=== PATIENT | female | born 1975 | race Caucasian/White ===

== ENCOUNTER 2020-11-06 06:18 | Observation (INO) | payer SELFPAY ==
[2020-11-06] VITALS (14 sets, daily range): BP systolic 80–117; BP diastolic 53–84
[~2020-11-06] VITALS: Ht 162.6 cm; Wt 71.2 kg
[~2020-11-06 06:18] MED LIST: ALPR1TAB2 PO; HYDR-3164 PO; IV RINGERS,LACTATED 1000ML 1,000 ML IV SCH; NAPR-683 PO; ceFAZolin SODIUM IV Push 1 GM VIAL. IVP PRN; fentaNYL PF VIAL 100 MCG/2 ML VIAL IVP PRN
[2020-11-06] MEDS ORDERED: LIDOCAINE 1%/EPI 1:100,000 20 ML VIAL. ONE (07:12)
[2020-11-06] MEDS ORDERED: ESTROGENS, CONJ VAGINAL CREAM 30GM TUBE. ONE (07:12)
[2020-11-06] MEDS ORDERED: INDIGOTINDISULFONATE SODIUM 40 MG/5 ML AMPUL. ONE (07:12)
[2020-11-06] MEDS ORDERED: ROCURONIUM 50 MG/5 ML VIAL. ONE (07:55)
[2020-11-06] MEDS ORDERED: MIDAZOLAM HCL/PF 2 MG/2 ML VIAL. ONE (08:10)
[2020-11-06] MEDS ORDERED: DEXAMETHASONE SOD PHOS 4 MG/ML VIAL ONE (08:10)
[2020-11-06] MEDS ORDERED: SEVOFLURANE 61 TO 120 MINUTES. IH ONE (08:11)
[2020-11-06] MEDS ORDERED: PROPOFOL 10 MG/ML (20ML) VIAL. IV ONE ×2 (08:12)
[2020-11-06] MEDS ORDERED: ONDANSETRON PF 4 MG/2 ML VIAL. ONE (08:12)
[2020-11-06] MEDS ORDERED: LIDOCAINE 2% PF 5 ML VIAL. ONE (08:12)
[2020-11-06] MEDS ORDERED: KETOROLAC 30 MG/ML VIAL. ONE (08:12)
[2020-11-06] MEDS ORDERED: NEOSTIGMINE METHYLSULFATE 5 MG/5 ML SYRINGE. ONE (08:13)
[2020-11-06] MEDS ORDERED: fentaNYL PF VIAL 100 MCG/2 ML VIAL ONE ×3 (08:13→09:42)
[2020-11-06] MEDS ORDERED: GLYCOPYRROLATE 1 MG/5 ML VIAL. ONE (08:13)
--- NOTE | 2020-11-06 08:56 | PDOC ---
BRIEF OPERATIVE NOTE Date: Nov 06, 2020 Pre-Op Diagnosis MT 3 Post-Op Diagnosis Same + Fibroids Procedure Performed TVH & RSO Surgeon Dr. Perez Licensed Staff Mft Oven Builder: Jose Anesthesia Type: General Blood Loss 50 ml Specimens Obtained cervix, uterus, ROV, Right fallopian tube Findings MT 3 with fibroids on uterus, nml ROV Complications none Operative Note see dictation STEPAN PEREZ Jr, MD Nov 06, 2020 08:56
[2020-11-06] MEDS ORDERED: SIMETHICONE 80 MG TAB.CHEW PO PRN (09:00)
[2020-11-06] MEDS ORDERED: CALCIUM CARBONATE 500 MG TAB.CHEW PO PRN (09:00)
[2020-11-06] MEDS ORDERED: DEXTROSE 50% 25 GM / 50ML DISP.SYRIN. IV PRN (09:00)
[2020-11-06] MEDS ORDERED: PROCHLORPERAZINE 10 MG/2 ML VIAL. IV PRN (09:00)
[2020-11-06] MEDS ORDERED: diphenhydrAMINE 50 MG/ML VIAL IV PRN (09:00)
[2020-11-06] MEDS ORDERED: 0.9 % SODIUM CHLORIDE 10 ML DISP.SYRIN. IV PRN (09:00)
[2020-11-06] MEDS ORDERED: OPIUM/BELLADONNA 30/16.2MG SUPP.RECT. PR PRN (09:00)
[2020-11-06] MEDS ORDERED: diphenhydrAMINE HCL 25 MG CAPSULE PO PRN (09:00)
[2020-11-06] MEDS ORDERED: KETOROLAC 30 MG/ML VIAL. IV PRN (09:00)
[2020-11-06] MEDS ORDERED: ZOLPIDEM 5 MG TABLET. PO PRN (09:00)
[2020-11-06] MEDS ORDERED: ONDANSETRON PF 4 MG/2 ML VIAL. IV PRN (09:00)
[2020-11-06] MEDS: fentaNYL PF VIAL 100 MCG/2 ML VIAL IVP PRN ×3 (09:09→09:44)
[2020-11-06] MEDS: PROCHLORPERAZINE 10 MG/2 ML VIAL. IVP PRN ×2 (09:11→09:21)
--- NOTE | 2020-11-06 09:13 | OP ---
DATE OF SURGERY: 11/06/2020 PREOPERATIVE DIAGNOSIS: Cervical intraepithelial neoplasia 3. POSTOPERATIVE DIAGNOSIS: Cervical intraepithelial neoplasia 3, fibroids. PROCEDURE: TVH and RSO. SURGEON: Daren Perez MD PROJECT HIRE: Jose. ANESTHESIA: GETA. ESTIMATED BLOOD LOSS: 50 mL. COMPLICATIONS: None. FINDINGS: Cervical intraepithelial neoplasia 3 with fibroids on the uterus, normal right ovary. SUMMARY: A 44-year-old female with MT 3, requiring hysterectomy. She was counseled on the risks, benefits and expectations of TVH and RSO. Voiced a clear understanding to proceed. DESCRIPTION OF PROCEDURE: The patient was taken to surgery suite and placed in dorsal lithotomy position, was prepped with Betadine solution and draped in a sterile fashion. After adequate anesthesia, weighted speculum and curved Roly were placed vaginally. Anterior and posterior lips of the cervix grasped with Rossi clamps, 1% lidocaine with epinephrine was injected in a circumferential manner. Bovie cautery was utilized to circumscribe the cervix. The vaginal mucosa was dissected away from the lower uterine segment using moist Ray-Darlene. Parametrial tissue was clamped bilaterally using curved Selena clamps, cut and suture ligated with 2-0 Vicryl suture. Posterior cul-de-sac was entered bluntly. A long weighted speculum was placed. Uterosacral ligaments and cardinal ligaments were clamped bilaterally, cut, and suture ligated. Anterior cul-de-sac was entered with blunt dissection using a moist Ray-Darlene. The one additional pedicle on the patient's left side was clamped with curved Selena clamp, cut and suture ligated with 2-0 Vicryl suture. The right uteroovarian pedicle was clamped, cut and suture ligated. The cervix, uterus was removed. There was a fibroid on the uterus that was visualized and removed as well. Giorgio was used to grasp the right fallopian tube and ovary. The curved Selena was then placed behind the right infundibulopelvic ligament, which was cut and suture ligated with 2-0 Vicryl suture. The pedicles appeared hemostatic. A modified Carmona's culdoplasty using 0 Vicryl suture was utilized. The remainder of the vaginal cuff was reapproximated using 2-0 Vicryl suture in [id number] manner. Premarin vaginal packing was placed. Calzada catheter was placed, elicited moderate amount of clear yellow urine. The patient tolerated the procedure well and was taken to recovery room in stable condition. Sponge and needle count correct x 3. GUILLERMO DR: Pita TID: [id number]
[2020-11-06] MEDS: oxyCODONE/APAP 5/325 1 TAB TABLET PO PRN ×3 (11:57→21:53)
--- NOTE | 2020-11-06 12:00 | NUR ---
Patient arrived around 1000 from PACU. and her mom are at bedside. Calzada in place and packing present. She is ALOx4 and on room air at this time. Vital signs being monitored. IV working properly in left hand. Will continue to monitor.
[2020-11-06] MEDS: GABAPENTIN 300 MG CAPSULE. PO SCH ×2 (15:18→21:53)
[2020-11-06] MEDS ORDERED: DOCUSATE SODIUM 100 MG CAPSULE. PO PRN (17:15)
--- NOTE | 2020-11-06 18:25 | NUR ---
Patient called this nurse into her room around 1714 reporting sharp pain in her lower ribs/upper abdomen. She demanded to have the packing out, stating she was sure that was the cause. Packing was removed around 1729 with only a scant amount of bleeding present on the packing. Some of the pressure was relieved but she stated the pain was starting to feel like she had to have a BM but wasnt sure why it felt so sharp and high up in her ribs/abdomen. Patient ambulated around the unit and relieved some gas which she stated made it feel MUCH better. Sprite given to help relieve some of the gas/pressure. She is now resting in her chair stating she is starting to feel much better. IS education completed as well. Will continue to monitor.
--- NOTE | 2020-11-06 19:25 | NUR ---
Dr Perez notified over the phone of everything going on with the patients pain and discomfort and to verify continuing some home medication.
[2020-11-06] MEDS ORDERED: ALPRAZolam 1 MG TABLET PO PRN (19:28)
[2020-11-07 00:21] VITALS: BP 99/52
[2020-11-07 02:18] VITALS: BP 91/52
[2020-11-07 06:00] VITALS: BP 116/54
[2020-11-07] MEDS: oxyCODONE/APAP 5/325 1 TAB TABLET PO PRN ×3 (06:00→15:54)
[2020-11-07] MEDS: GABAPENTIN 300 MG CAPSULE. PO SCH ×2 (06:00→14:10)
--- NOTE | 2020-11-07 08:00 | NUR ---
Ambulating in room and voiding without difficulty. Urine is yellow and clear. Still encourage pt to increase po fluids. Verbalized understanding. Cont. monitor.
[2020-11-07 08:09] LABS: BASO % 0 % (0-3); EOS # 0.1 x10^3/uL (0.0-0.7); EOS % 1 % (0-3); HEMATOCRIT 26.8 % (36.0-47.0); HEMOGLOBIN 9.1 g/dL (12.0-15.5); LYMPH # 2.4 x10^3/uL (1.0-4.8); LYMPH % 20 % (24-48); MEAN CORPUSCULAR HEMOGLOBIN 32 pg (25-35); MEAN CORPUSCULAR HGB CONC 34 g/dL (31-37); MEAN CORPUSCULAR VOLUME 95 fL (79-100); MONO # 1.1 x10^3/uL (0.0-1.1); MONO % 9 % (0-9); NEUT % 69 % (31-73); PLATELET COUNT 230 x10^3/uL (140-400); RED BLOOD COUNT 2.82 x10^6/uL (3.50-5.40); RED CELL DISTRIBUTION WIDTH 16.1 % (11.5-14.5); WHITE BLOOD COUNT 11.6 x10^3/uL (4.0-11.0)
[2020-11-07 11:00] VITALS: BP 100/62
[2020-11-07 15:00] VITALS: BP 109/75
--- NOTE | 2020-11-07 15:02 | PDOC ---
SURGICAL PROGRESS NOTE DATE: 11/07/20 TIME: 15:01 Subjective Pt. feeling well. No complaints. Pain controlled. Pt. ambulating, voiding and tolerating regular diet. She has positive flatus. Vital Signs Vital Signs Date Time Temp Pulse Resp B/P (MAP) Pulse Ox O2 Delivery O2 Flow Rate FiO2 11/07/20 11:20 Room Air 11/07/20 11:00 98.3 88 16 100/62 (75) 92 98.3 11/06/20 09:44 3.0 I&O Intake and Output 11/07/20 07:00 Intake Total 500 ml Output Total 1750 ml Balance -1250 ml Intake Oral 500 ml Output Urine Total 1750 ml # Voids 101 General: Alert, Oriented X3, Cooperative HEENT: Atraumatic Lungs: Clear to auscultation Heart: Regular rate Abdomen: Normal bowel sounds, Soft, No tenderness, No masses Psych/Mental Status: Mental status NL Labs Laboratory Tests Test 11/06/20 05:47 11/07/20 07:40 Bedside Urine HCG, Qualitative Hcg negative (Negative) White Blood Count 11.6 x10^3/uL (4.0-11.0) Red Blood Count 2.82 x10^6/uL (3.50-5.40) Hemoglobin 9.1 g/dL (12.0-15.5) Hematocrit 26.8 % (36.0-47.0) Mean Corpuscular Volume 95 fL (79-100) Mean Corpuscular Hemoglobin 32 pg (25-35) Mean Corpuscular Hemoglobin Concent 34 g/dL (31-37) Red Cell Distribution Width 16.1 % (11.5-14.5) Platelet Count 230 x10^3/uL (140-400) Neutrophils (%) (Auto) 69 % (31-73) Lymphocytes (%) (Auto) 20 % (24-48) Monocytes (%) (Auto) 9 % (0-9) Eosinophils (%) (Auto) 1 % (0-3) Basophils (%) (Auto) 0 % (0-3) Neutrophils # (Auto) 8.0 x10^3/uL (1.8-7.7) Lymphocytes # (Auto) 2.4 x10^3/uL (1.0-4.8) Monocytes # (Auto) 1.1 x10^3/uL (0.0-1.1) Eosinophils # (Auto) 0.1 x10^3/uL (0.0-0.7) Basophils # (Auto) 0.0 x10^3/uL (0.0-0.2) Laboratory Tests Test 11/07/20 07:40 White Blood Count 11.6 x10^3/uL (4.0-11.0) Red Blood Count 2.82 x10^6/uL (3.50-5.40) Hemoglobin 9.1 g/dL (12.0-15.5) Hematocrit 26.8 % (36.0-47.0) Mean Corpuscular Volume 95 fL (79-100) Mean Corpuscular Hemoglobin 32 pg (25-35) Mean Corpuscular Hemoglobin Concent 34 g/dL (31-37) Red Cell Distribution Width 16.1 % (11.5-14.5) Platelet Count 230 x10^3/uL (140-400) Neutrophils (%) (Auto) 69 % (31-73) Lymphocytes (%) (Auto) 20 % (24-48) Monocytes (%) (Auto) 9 % (0-9) Eosinophils (%) (Auto) 1 % (0-3) Basophils (%) (Auto) 0 % (0-3) Neutrophils # (Auto) 8.0 x10^3/uL (1.8-7.7) Lymphocytes # (Auto) 2.4 x10^3/uL (1.0-4.8) Monocytes # (Auto) 1.1 x10^3/uL (0.0-1.1) Eosinophils # (Auto) 0.1 x10^3/uL (0.0-0.7) Basophils # (Auto) 0.0 x10^3/uL (0.0-0.2) Assessment/Plan A: POD#1 s/p TVH & RSO P: D/c home. F/u in 2 weeks. Justicifation of Admission Dx: Justifications for Admission: Justification of Admission Dx: Yes STEPAN MILLER Jr, MD Nov 07, 2020 15:02
[2020-11-07] MEDS ORDERED: IBUP-1060 PO (15:05)
[2020-11-07] MEDS ORDERED: DOCU-153 PO (15:05)
[2020-11-07] MEDS ORDERED: OXYC1TAB15 PO (15:05)
--- NOTE | 2020-11-07 15:06 | DISCH ---
DISCHARGE INSTRUCTIONS Condition on Discharge Condition on Discharge: Stable Activity After Discharge Activity Instructions for Disc: Activity as tolerated Lifting Instructions after Dis: No heavy lifting Driving Instructions after Dis: Do not drive today (no driving x 1 week) Diet after Discharge Diet after Discharge: Regular Contacting the [facility] after DC Call your doctor for: If your condition worsens Follow-Up Follow up with: Dr. Perez in 2 weeks. STEPAN PEREZ Jr, MD Nov 07, 2020 15:06
--- NOTE | 2020-11-07 16:05 | NUR ---
Discharge instructions given with prescriptions. Answered questions and concerns. Verbalized understanding. Pt discharged home accompanied by spouse. Escorted out by w/c.
--- NOTE | 2020-11-12 17:09 | PATHOLOGY ---
[facility] Accession Number: [id number] . 01 Material submitted: . uterus - CERVIX AND UTERUS, RIGHT OVARY, RIGHT FALLOPIAN TUBE. Modifiers: CERVIX, RIGHT OVARY, RIGHT FALLOPIAN TUBE . 01 Clinical history: . CERVICAL CANCER C1N3 TRANSVAGINAL HYSTERECTOMY WITH RIGHT SALPINGO-OOPHERECTOMY CERVICAL INTRAEPITHELIAL . 02 Diagnosis: Uterus, detached ovary with attached fibromuscular tissue, and separate segment of smooth muscle, transvaginal hysterectomy with right salpingo-oophorectomy: - Severe dysplasia/carcinoma in situ (MT-III) with focal superficial endocervical glandular extension, region of transformation zone, uterine cervix, focal. - Exocervical and deep margins negative for MT-III. - Chronic cervicitis with focal squamous metaplasia. - Leiomyomas (2), uterine corpus, subserosal and intramural, the largest measuring 2.6 cm in greatest dimension. - Leiomyoma, separate from uterus, measuring 2.9 cm in greatest dimension. - Serous inclusions/cysts with psammomatous calcifications, ovarian capsule and cortex, numerous. - Dermoid cyst of ovary, measuring 0.7 cm. - Few cystic follicles of ovary. - Fibrovascular/fibromuscular tissue attached to ovary - no fallopian tube identified. (JPM:hilda; 11/10/2020) [facility] 11/12/2020 1215 Local . 02 Comment: There is focal severe dysplasia/carcinoma in situ (MT-III) with focal superficial glandular extension in the region of the transformation zone. The exocervical and deep margins are negative for MT-III. There is no evidence of invasive carcinoma. The case is also examined by Dr. Christopher, who concurs with the diagnoses. (JPM:hilda; 11/10/2020) . 02 Electronically signed: . Lee Fu MD, Pathologist NPI- [id number] . 01 Gross description: . Fixative: Formalin Labeled: Cervix and uterus, right ovary, right fallopian tube Specimen received: Intact hysterectomy with detached ovary with possible fallopian tube and detached leiomyoma Uterus weight: 59 g Uterus: 7.8 cm from fundus to cervix, 4.7 cm from cornu to cornu, 4.8 cm from anterior to posterior Serosa: [place]-teixeira and smooth with a subserosal leiomyoma on the posterior aspect measuring 1.3 cm in greatest dimension Ectocervix: [place]-teixeira and glistening with a roughened area surrounding the cervical os measuring 1.1 x 0.8 cm. This area is located 1.4 cm from the closest ectocervical margin at 3:00. Cervical os: Slitlike, measuring 1.0 cm Parametrium is not present. Endocervical canal: 2.2 x 0.4 cm Endometrial cavity: 3.5 x 2.2 cm Endometrial thickness: 0.1 cm Myometrial thickness: 1.6 cm Lesions/abnormalities: An additional teixeira-white whorled leiomyoma is present in the posterior myometrium measuring 2.6 cm in greatest dimension. The ectocervical mucosal margin is inked green and the deep cervical margin is inked black. The separate leiomyoma measures 2.9 x 2.3 x 1.8 cm and is sectioned to reveal a teixeira-white whorled cut surface without hemorrhage or necrosis Ovary: 9 g, 4.1 x 2.5 x 1.8 cm. The ovary has a teixeira-white cerebriform external surface and is sectioned to reveal multiple thin-walled simple cysts ranging from 0.6-0.8 cm and a teixeira-white friable cyst measuring 0.6 cm in greatest dimension. Multiple corpora lutea and corpora albicantia are also present. Attached to the ovary is a fragment of pink-teixeira soft tissue or possible fallopian tissue measuring 1.6 x 1.4 x 1.0 cm. Fimbria are not definitively identified and a lumen is not identified upon sectioning. Electric Motor Repairer sections are submitted as follows: A1-A4 12:00-3:00 cervix A5-A9 3:00-6:00 cervix A10-A13 6:00-9:00 cervix A14-A16 9:00-12:00 cervix A17 anterior lower uterine segment A18 posterior lower uterine segment A19 anterior endomyometrium A20 posterior endomyometrium with leiomyoma A21 outside dealer sales representative separate leiomyoma A22-A24 outside dealer sales representative ovary A25 entire fragment of soft tissue attached to ovary (possible fallopian tube) ([facility] [place]; 11/09/2020) . After initial microscopic examination, the remainder of the ovary is submitted in cassettes A26 through A29. ([facility]; 11/11/2020) [facility] 11/11/2020 1817 Local . 02 Pathologist provided ICD-10: D06.9, N72, D25.2, D25.1, N83.209, D27.9 . 02 CPT . 389619 Specimen Comment: A courtesy copy of this report has been sent to [phone] Specimen Comment: Report sent to Performed at: 01 [facility] [address], [place] [id number] MD Costa Christopher MD Phone: [phone] Performed at: 02 [facility] [address] [place], [place] [id number] MD Lee Fu MD Phone: [phone]
== END 2020-11-07 16:05 | disposition home or self-care (01) ==
LOC: SURG 06:18 → 4 SOUTHEST 08:56
PROVIDERS: ADMIT Obstetrics & Gynecology; ATTEND Obstetrics & Gynecology
DX: D25.9 Leiomyoma of uterus, unspecified (principal); D06.9 Carcinoma in situ of cervix, unspecified
CPT/HCPCS: 36415; 58262; 81025; 85025; 86850; 86900; 86901; 96374; A4314; A4930; G0378; G0379; J0690; J0780; J1100; J1885; J2250; J2405; J2704; J2710; J3010; J3490; 88309